=== PATIENT | male | born 1980 | race Caucasian/White ===

== ENCOUNTER 2021-03-03 09:48 | Outpatient (CLI) | payer BC, SELFPAY | END 2021-03-03 09:49 | disposition home or self-care (01) | PROVIDERS: PCP Family Medicine; Visit Provider Surgery | DX: Z01.818 Encounter for other preprocedural examination (principal); Z98.890 Other specified postprocedural states | CPT/HCPCS: 36415; 86850; 86900; 86901 ==

== ENCOUNTER 2021-03-08 00:45 | Day surgery (SDC) | payer BC, SELFPAY ==
[2021-03-02 17:34] VITALS: BMI 27.1
[2021-03-08] VITALS (9 sets, daily range): BP systolic 107–147; BP diastolic 58–79; PULSE 48–82; RESP 12–16; TEMP 36.4; O2SAT 99–100; BMI 27.3
--- NOTE | 2021-03-08 10:41 | WPDANESEPPF ---
Anes - Initial Pre Proc Eval Procedure: Operation Date: 03/08/21 12:00 Proposed Procedures p Robotic Assisted Laparoscopic Right Inguinal Hernia with Mesh - Hanna Anne MD Date/Time: 03/08/21 10:41 Surgeon: Hanna Anne MD Pre Op Diagnosis: right ing hernia Patient Data Age: 40 Gender: M Height: 1.83 m Weight: 90.72 kg Allergies Allergy/AdvReac Type Severity Reaction Status Date / Time No Known Allergies Allergy Verified 03/02/21 17:33 Home Medications Medication Instructions Recorded Confirmed Type No Home Medications 03/02/21 03/02/21 History Patient hx anesthesia problems: none Family hx anesthesia problems: none PMFSH Past Medical History Medical History (Updated 02/05/21 @ 14:40 by France Regan) Folliculitis Intermittent low back pain Surgical History Surgical History (Updated 02/05/21 @ 14:31 by Micheline Tay) History of repair of anterior cruciate ligament of left knee 1992 Family History Family History (Updated 02/05/21 @ 14:31 by Micheline Tay) Father Hypertension Other Lung cancer Pancreatic cancer Social History Social History (Updated 02/05/21 @ 14:32 by Micheline Tay) Smoking packs per day: 0.5 Smoking cigarettes per day: 10.0 Years smoked: 10 Smoking pack-years: 5.00 Smoking status: Former smoker Tobacco type: cigarettes Second hand tobacco smoke exposure: No Smoking end date: 08/18/04 Additional smoking assessment comments: vaping for 8 years Alcohol intake: current Alcohol use details: rarely Substance use: never Substance use type: does not use Living arrangements: with family 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 identity (if verbalized by the patient): Male Spiritual care concerns: No Anes - Eval Final PreProcedure Day of Procedure 03/08/21 10:41 Patient weight: overweight Heart: regular rate and rhythm Lungs: clear to auscultation and normal air movement Airway: Mallampati scale class II Neurological: alert and oriented Last oral intake: >/= 8 hours ASA classification: II Emergent: no Anesthetic plan: proceed Anesthesia type and monitoring: general ETT and standard monitoring Informed Consent: The patient's anesthetic plan and its attendant risks and benefits were discussed with the patient/family/POA. Questions were solicited and answers provided to the satisfaction of the patient/family/POA.
[2021-03-08] MEDS: LACTATED RINGERS 1,000 ML 30 ML IV CONT ×2 (11:37→13:43)
[2021-03-08] MEDS: ACETAMINOPHEN 500 MG TABLET 1000 MG PO (11:37)
[2021-03-08] MEDS: KETOROLAC 15 MG/ML VIAL (*BKC) IV PUSH (11:37)
--- NOTE | 2021-03-08 11:54 | WPDHPUPDATE1 ---
History and Physical Update Update Date/Time: 03/08/21 11:54 History and Physical has been reviewed, including an updated exam of the patient. There are NO changes in the patient's condition. Risks, benefits, and alternatives have been discussed and questions answered. Patient agrees to proceed with procedure.
--- NOTE | 2021-03-08 11:54 | PM.IMHP ---
H&P: HPI History of Present Illness Date/Time: 03/08/21 11:54 40 y/o male presents to office for evaluation right inguinal hernia. He has noticed a bulge in the right groin associated with discomfort in area. He notices pressure to the area, sneezing, or coughing causes him discomfort.He initially noticed the bulge approximately 6 mos ago. It hasn't changed in size. He is having normal BM's. He is able to reduce the bulge when laying down. He has no previous hernia repair. He is now seen in consultation at the request of Dr. Raya. Chief Complaint: right inguinal hernia Review of Systems Review of Systems: All systems reviewed & are unremarkable except as noted in HPI and below PMFSH Past Medical History Medical History Folliculitis Intermittent low back pain Surgical History Surgical History History of repair of anterior cruciate ligament of left knee 1992 Family History Family History Father Hypertension Other Lung cancer Pancreatic cancer Social History Social History Smoking packs per day: 0.5 Smoking cigarettes per day: 10.0 Years smoked: 10 Smoking pack-years: 5.00 Smoking status: Former smoker Tobacco type: cigarettes Second hand tobacco smoke exposure: No Smoking end date: 08/18/04 Additional smoking assessment comments: vaping for 8 years Alcohol intake: current Alcohol use details: rarely Substance use: never Substance use type: does not use Living arrangements: with family 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 identity (if verbalized by the patient): Male Spiritual care concerns: No Meds Home Medications and Allergies Home Medications Medication Instructions Recorded Confirmed Type No Home Medications 03/02/21 03/08/21 History Allergies Allergy/AdvReac Type Severity Reaction Status Date / Time No Known Allergies Allergy Verified 03/08/21 11:15 Vital Signs Vital Signs - 24 hr 03/08/21 11:51 Temperature 36.4 C Pulse Rate 76 Respiratory Rate 16 Blood Pressure 122/69 Pulse Oximetry 100 Exam Const: General: cooperative, healthy appearing, comfortable, no acute distress and well developed Nutritional Appearance: average body habitus Orientation/consciousness: patient oriented x3 Limitations: no limitations Resp: Effort & Inspection: normal respiratory effort Auscultation: clear to auscultation bilaterally Cardio: Rate: regular rate Rhythm: regular rhythm GI: Inspection: normal to inspection and non-distended GI Palp: Yes Soft to palpation and No Tenderness to palpation present (GI) Other: reducible RIH Assessment and Plan Assessment and plan (1) Right inguinal hernia: Code(s): K40.90 - Unilateral inguinal hernia, without obstruction or gangrene, not specified as recurrent Status: Acute Assessment and Plan: will setup for robotic assisted repair c mesh
[2021-03-08] MEDS: ceFAZolin 2 GM/D5W 50 ML 2 GM/50 ML BAG IVPB (12:13)
[2021-03-08] MEDS: BUPIVACAINE/EPINEPHRINE 0.5% 10 ML VIAL 30 ML INFILTRATE (12:38)
--- NOTE | 2021-03-08 13:46 | P.OP_ITS ---
Procedure Note - Detailed Date of Procedure 03/08/21 Pre-op Diagnosis right inguinal hernia Post-op Diagnosis same Procedure Performed Robotic assisted repair direct right inguinal hernia with mesh Surgeon Hanna Anne MD Anesthesia general Indications 40-year-old male with right inguinal hernia Findings direct right inguinal hernia c lipoma of cord Description of Procedure Patient was brought into the operating room and placed in the supine position. After adequate induction of general anesthesia, the patient was prepped and draped in normal sterile fashion. A time-out was then done to verify the pa tient's identity, as well as the procedure being performed. Began by making a 8 mm incision in the supraumbilical region, a Veress needle was then placed into the peritoneal cavity. CO2 gas was then insufflated and after adequate pneumoperitoneum was achieved, the Veress needle was removed. I then placed an 8 mm trocar through this incision. I then placed the endoscope through this trocar site and under direct visualization placed 2 further 8 mm ports in the right and left mid abdomen. The [employer] robot was then docked to the 3 trocar sites. I then scrubbed out and went to the robotic console. Upon examining the pelvis, it was noted that the patient had a right inguinal defect. The left side was examined and no hernia defect was noted. I began by making a preperitoneal flap approximately 6 cm superior to the defect. This flap was carried medially past the umbilical ligaments in laterally to the transversalis. It then began dissection of my medial compartment taking this down to the pubic tubercle. A direct hernia was noted and reduced. I then began the lateral dissection taking this down to the transversalis fascia. Once these compartments were achieved, I began dissection around the cord structures. Using careful dissection, I was able to reduce a lipoma of the cord off the cord structures. Of note, no indirect hernia was noted. Once this was adequately done, I went ahead and placed a 15 x 10 piece of [employer] mesh into the abdominal cavity. The mesh was carefully positioned, centering the center of the mesh over the direct defect. Once this was done, was very satisfied with our repair. I then closed the peritoneal flap with a running 2.0 V Lock suture. The abdomen was then desufflated, and all ports were removed. All incisions were then closed with the 4.0 monocryl suture. Dermabond was placed on each wound. The patient tolerated the procedure well, was extubated in the operating room postoperatively, and will now be transferred to the recovery room in stable condition. Implants 15 x 10 [employer] mesh Estimated Blood Loss 5 Drains No Packing No Pathology none sent Complications No immediate complications Condition stable Disposition PACU
[2021-03-08] MEDS: oxyCODONE HCL (*CRX) 5 MG TAB IR PO (15:43)
--- NOTE | 2021-03-08 15:57 | SUR.PHASEII ---
PT URINATED AT 1520 WITHOUT ISSUE.
== END 2021-03-08 15:40 | disposition home or self-care (01) ==
PROVIDERS: PCP Family Medicine; Visit Provider Surgery
PROC: 8E0Y4CZ Robotic Assisted Procedure of Lower Extremity, Percutaneous Endoscopic Approach (ICD-10-PCS; CPT 49650; principal; 2021-03-08 12:00)
DX: K40.90 Unilateral inguinal hernia, without obstruction or gangrene, not specified as recurrent (principal); Z87.891 Personal history of nicotine dependence
CPT/HCPCS: 49650; S2900; A9270; C1781; J0690; J1100; J1170; J1885; J2250; J2405; J2704; J2710; J3010; J7030; J7120

== ENCOUNTER → 2022-02-16 09:07 | Outpatient (CLI) | payer BC, SELFPAY ==
--- NOTE | ~2022-02-16 | MR_ITS ---
EXAMINATION: MR knee RT wo con DATE: 02/16/2022 09:45 INDICATION: Generalized right knee pain limited range of motion. Hyperextension and twisting injury 2 -3 months ago. TECHNIQUE: Magnetic resonance imaging (MRI) of the right knee was performed without intravenous contr ast. Sequences included axial PD-weighted FS FSE, coronal PD-weighted FSE and PD-weighted FS FSE, sag ittal PD-weighted FSE, and sagittal T2-weighted FS FSE. COMPARISON: None. FINDINGS: Medial compartment: Oblique undersurface tear at the junction of the posterior horn and body of the medial meniscus. Cart ilage intact. Minimal osteophytosis. Lateral compartment: Meniscus and cartilage intact. Mild osteophytosis. Patellofemoral compartment: Cartilage intact. Retinacula are intact. Minimal osteophytosis. Ligaments and tendons: Abnormal signal deep to the ACL fibers at their insertion. The remainder of the ligament appears inta ct. The PCL, MCL, and LCL are intact. Flexor and extensor tendons are intact. Fluid: Small volume joint fluid. Focal fluid collection at the origin of the medial head of the gastrocnemiu s muscle. Small fluid collection deep to the insertion of the patellar tendon. Osseous/other: Bone marrow signal is unremarkable. IMPRESSION: 1. Oblique undersurface tear at the junction of the posterior horn and body of the medial meniscus. 2. Mild partial tear of the ACL at its origin. 3. Partial tear at the origin of the medial head of gastrocnemius muscle. 4. Minimal deep infrapatell ar bursitis. Reviewed, dictated and finalized at location K. IMPRESSION: 1. Oblique undersurface tear at the junction of the posterior horn and body of the medial meniscus. 2. Mild partial tear of the ACL at its origin. 3. Partial tear at the origin of the medial head of gastrocnemius muscle. 4. Mi nimal deep infrapatellar bursitis.
== END ==
PROVIDERS: PCP Family Medicine; Visit Provider Family Medicine
DX: S83.241A Other tear of medial meniscus, current injury, right knee, initial encounter (principal); X58.XXXA Exposure to other specified factors, initial encounter
CPT/HCPCS: 73721

== ENCOUNTER → 2022-09-19 12:42 | Outpatient (CLI) | payer BC, SELFPAY ==
--- NOTE | ~2022-09-19 | MR_ITS ---
MRI of the lumbar spine Clinical History: Back pain Technique: Axial T2-weighted images, and sagittal T1-weighted, T2-weighted, and and T2 fat-sat images were acquired. Findings: There is no fracture or subluxation of the lumbar spine. Vertebral bodies maintain normal h eight and alignment. No suspicious bone marrow signal reality seen. At L1-L2, there is no disc bulge or herniation. There is no spinal canal stenosis or neural foraminal narrowing. L2-L3, there is no disc bulge or herniation. No spinal canal stenosis or neural foraminal narrowing. At L3-L4, there is diffuse disc bulge with mild effacement of the ventral thecal sac. No re spinal canal stenosis. There is mild right neural foraminal narrowing. At L4-L5, there is minimal disc bulge. No spinal canal stenosis. There is moderate left neural forami nal narrowing and mild right neural foraminal narrowing. At L5-S1, there is probable right foraminal disc osteophyte complex. There is moderate right neural f oraminal narrowing and mild left neural foraminal narrowing. No spinal canal stenosis. Paravertebral soft tissues are unremarkable. Impression: Mild degenerative spondylosis, as detailed above. Reviewed, dictated and finalized at location . [facility] Impression: Mild degenerative spondylosis, as detailed above.
== END ==
PROVIDERS: PCP Family Medicine; Visit Provider Nurse Practitioner
DX: M47.896 Other spondylosis, lumbar region (principal)
CPT/HCPCS: 72148

== ENCOUNTER 2022-10-11 10:00 | Outpatient (RCR) | payer BC, SELFPAY ==
--- NOTE | 2022-09-20 16:32 | PTOPEVAL1 ---
Assessment and note entered by Marleny Martinez, PT, DPT Evaluation Information Assessment Status Evaluation Diagnosis low back pain Onset 6 weeks Subjective Information Pt states about 6 weeks ago he was exercising and initial hurt his back. He states 3 weeks ago he was sitting down and felt a pop. Since then he has numbness down the side of his calf and pettit and on the dorsum of his pain. He reports pain the front of his thigh and into his L buttock. He stands during his evaluation d/t not being able to sit. He states he had a steroid injection and that really helped his pain. He states he enjoys exercising and performing a lift and that is what started all of this. Reported Pain Level Pain Score 5: Self Report Assessment PT Clinical Summary Juarez presents to therapy today for his initial evaluation with a diagnosis of low back pain. Today he demonstrates decreased LE strength and functional mobility that is limited by pain. He reports pain in his low back, hip, and buttock with altered sensation down his lateral lower leg and on the dorsum of his foot. He has visible increased tissue density as well as palpable muscle spasms in his L piriformis, L quadratus lumborum, and L lumbar paraspinals. He demonstrates an extension bias with repeated motions. Skilled physical therapy services are indicated to improve pain; which shoulder improve ROM and strength, to decreased muscle spasms, to increase sitting tolerance, to education on proper lifting mechanics, to limit impairments, and to return to baseline mobility. Plan of Care Interventions Electrical Stimulation,Gait Training,Hot Pack/Cold Pack,Manual Therapy,Mechanical Traction,Neuro Re- education,Patient/Caregiver Educati,Therapeutic Activities,Therapeutic Exercise PT Services Indicated Yes Treatment Frequency and 2x/wk for 4 wks Duration These treatments will address the objective and functional deficits as defined above. The patient will be advanced safely and appropriately in order for the patient to progress towards his/her prior level of function. Additional exercises will be introduced and as well as a comprehensive home exercise program upon discharge, if needed, ?to ensure carryover of functional gains achieved in the clinic. This treatment plan has been reviewed and agreement upon by the patient.
--- NOTE | 2022-10-11 10:51 | PTOPDC ---
Assessment and note entered by Marleny Martinez, PT, DPT Evaluation Information Assessment Status Discharge Diagnosis low back pain Onset 6 weeks Subjective Information Pt states he is doing much better overall. he states he still wakes up 1-2 times a night d/t pain but it is very mild compared to where he started. He declines any shooting pain down the leg but still has some numbness in the front of his pettit. Pt reports 75-80% improvement in overall symptoms. Reported Pain Level Pain Score 2: Self Report Assessment PT Clinical Summary Juarez presents to therapy today for his progress report following 6 visits of skilled therapy to treat his lumbar radiculopathy. Today he demonstrates excellent strength and mobility that is no longer limited by pain. He has met or progressed well towards all of his therapy goals and no longer requires skilled therapy services. Pt wishes to be discharged at this time. Plan of Care PT Services Indicated No Treatment Frequency and to be discharged Duration
== END 2022-10-11 12:53 | disposition home or self-care (01) ==
LOC: ANHGOSHPT 10:00
PROVIDERS: PCP Family Medicine; Visit Provider Nurse Practitioner
DX: M54.50 Low back pain, unspecified (principal)
CPT/HCPCS: 97012; 97014; 97110; 97112; 97140; 97162; 97530; G0283

== ENCOUNTER → 2023-04-04 12:18 | Outpatient (CLI) | payer BC, SELFPAY ==
--- NOTE | ~2023-04-04 | XR_ITS ---
EXAM: XR foot LT min 3V DATE: 04/04/2023 12:35 HISTORY: injury playing pickleball medial and lateral pain . COMPARISON: None available. FINDINGS: Normal mineralization. No fracture or dislocation. No lytic or blastic lesion. Joint space s are mild degenerative change at the first MTP joint. Minimal plantar enthesopathy. No erosion or pe riosteal change. Soft tissues within normal limits. IMPRESSION: No acute osseous finding in the left foot. Reviewed, dictated and finalized at location K.
== END ==
PROVIDERS: PCP Family Medicine; Visit Provider Nurse Practitioner Family
DX: S99.922A Unspecified injury of left foot, initial encounter (principal); X58.XXXA Exposure to other specified factors, initial encounter
CPT/HCPCS: 73630

== ENCOUNTER 2023-06-19 07:57 | Outpatient (RCR) | payer BC, SELFPAY ==
--- NOTE | 2023-06-19 08:59 | PTOPEVDC ---
Assessment and note entered by Marleny Martinez, PT, DPT Thank you for referring Juarez López III to [facility].? An evaluation has been completed. No further treatment is needed. Evaluation Information Assessment Status Evaluation Diagnosis back pain Onset 2 weeks Subjective Information Pt states he is doing a lot better now than when he scheduled his appointments. He states he has still been staying up with stretching and mobility since getting discharged from therapy in October. He states about 2 weeks ago he was playing pickelball and swung too hard and felt a pop in his back. Since then he was been really complaint with exercises and stretching since then. He has been doing yoga daily for the last couple of months. He reportes intermittent thumb tingling/ burning sensation. Reported Pain Level Pain Score 0: Self Report Assessment PT Clinical Summary Juarez presents to therapy today for his initial evaluation with a diagnosis of back pain. Today he demonstrates good lumbar ROM and LE strength without pain. He reports feeling tight and slightly compressed with prolonged standing, pt states traction helped with this feeling last time . Answered all pt's questions about exercise, stretching, and recovery. He is currently doing well and does not require skilled therapy services at this time. Plan of Care Interventions Mechanical Traction,Patient/Caregiver Educati, Therapeutic Activities,Therapeutic Exercise PT Services Indicated No Treatment Frequency and evaluate and discharge Duration
== END 2023-06-19 09:46 | disposition home or self-care (01) ==
LOC: ANHGOSHPT 07:57
PROVIDERS: PCP Family Medicine; Visit Provider Nurse Practitioner Family
DX: M54.40 Lumbago with sciatica, unspecified side (principal); M51.26 Other intervertebral disc displacement, lumbar region
CPT/HCPCS: 97012; 97110; 97161

== ENCOUNTER 2024-06-24 00:25 | Day surgery (SDC) | payer BC, SELFPAY ==
[2024-06-11 14:33] VITALS: BMI 27.8
[2024-06-24 06:34] VITALS: BP 126/76; PULSE 61; RESP 18; TEMP 36.2; O2SAT 97
[2024-06-24] MEDS: LACTATED RINGERS 1,000 ML 150 ML IV CONT (06:49)
--- NOTE | 2024-06-24 07:35 | PM.IMHP ---
H&P: HPI History of Present Illness Date/Time: 06/24/24 07:35 Chief Complaint: Screening for colorectal cancer Narrative: 43 yo man presents for first colonoscopy. Has occasional rectal bleeding. Denies fam hx colon cancer. Review of Systems Review of Systems: All systems reviewed & are unremarkable except as noted in HPI and below Constitutional: Constitutional: Denies chills, Denies fever(s), Denies headache(s) and Denies weight loss Eyes: Eyes: Denies change in vision ENT: Denies dizziness, Denies headache(s), Denies neck mass and Denies throat swelling Cardiovascular: Cardiovascular: Denies chest pain, Denies lightheadedness and Denies dyspnea Respiratory: Respiratory: Denies cough, Denies dyspnea and Denies wheezing Gastrointestinal: Gastrointestinal: Denies abdominal pain, Denies change in bowel habits, Denies nausea and Denies vomiting Genitourinary: Genitourinary: Denies hematuria and Denies dysuria Musculoskeletal: Musculoskeletal: Reports as per HPI Integumentary/Breasts: Skin/Breast: Reports as per HPI Neurologic: Denies dizziness and Denies headache(s) Allergic/Immunologic: Allergic/Immunologic: Denies throat swelling and Denies wheezing PMFSH Past Medical History Medical History Dyslipidemia Injury of meniscus of right knee Intermittent low back pain Muscle spasm Surgical History Surgical History History of repair of anterior cruciate ligament of left knee (~1992) 1992 Hx of right inguinal hernia repair Robotic assist repair direct right inguinal hernia with mesh on 03/08/21 Family History Family History Father Hypertension Other Lung cancer Pancreatic cancer Social History Social History Smoking packs per day: 0.5 Smoking cigarettes per day: 10.0 Years smoked: 10 Smoking pack-years: 5.00 Smoking status: Current every day smoker Tobacco type: cigarettes Second hand tobacco smoke exposure: No Smoking end date: 08/18/13 Additional smoking assessment comments: vaping for 8 years Alcohol intake: current Alcohol use details: Once a month Substance use: current Substance use type: marijuana Other substance usage details: daily Lack of Transportation: No Lack of Food: Never True Current Housing: I Have Housing Concerned About Future Housing: No Difficulty Paying Gas/Electric Bills: No Difficulty Paying for Meds: No Currently Unemployed: No Education: Master's Degree or Higher Difficulty w/ Childcare or Family Care: No Living arrangements: with family Occupation/Education: occupation 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 identity (if verbalized by the patient): Male Spiritual care concerns: No Meds Home Medications and Allergies Home Medications Medication Instructions Recorded Confirmed Type ibuprofen 800 mg tablet 800 mg PO Q12H #30 tabs 06/09/23 06/24/24 Rx cyclobenzaprine 10 mg tablet 10 mg PO Q8H PRN muscle spasm #30 04/05/24 06/24/24 Rx tabs Allergies Allergy/AdvReac Type Severity Reaction Status Date / Time No Known Allergies Allergy Verified 06/24/24 06:33 Vital Signs Vital Signs - 24 hr 06/24/24 06:34 Temperature 97.1 F L Pulse Rate 61 Respiratory Rate 18 Blood Pressure 126/76 Pulse Oximetry 97 Oxygen Delivery Room Air Exam Const: General: no acute distress and alert Orientation/consciousness: patient oriented x3 HENMT: Head: normocephalic and atraumatic Ears: hearing grossly normal bilaterally Face/Nose/Sinus: Normal nares present Mouth: Yes Normal oral and palatal mucosa present Eyes: Periorbital: periorbital findings normal Sclera: sclerae normal EOM: EOMs intact bilaterally Neck: Neck: normal visual inspection, no lymphadenopathy and trachea midline Chest: Chest palpation & inspection: normal inspection of the chest Resp: Effort & Inspection: normal respiratory effort Auscultation: clear to auscultation bilaterally Cardio: Jugular venous distension: no JVD Rate: regular rate Rhythm: regular rhythm Heart sounds: S1 normal heart sound present and S2 normal heart sound present Peripheral pulses: Peripheral pulses 2+ throughout GI: Inspection: normal to inspection GI Palp: Yes Soft to palpation, No Tenderness to palpation present (GI), No Guarding due to palpation present (GI) and No Rebound tenderness present Percussion: Yes normal to percussion Auscultation: normal bowel sounds : General: Yes no CVA tenderness Back/Spine/Pelvis: Back: no CVA tenderness Neuro: General: patient oriented x3, no focal motor deficits and CN's II-XI intact bilaterally Cognition (Neuro): normal cognition Speech: normal speech Motor exam (neuro): 5/5 motor strength present throughout Extrem: General: capillary refill normal and no clubbing, cyanosis or edema Assessment and Plan Assessment and plan (1) Screening for colorectal cancer: Code(s): Z12.11 - Encounter for screening for malignant neoplasm of colon; Z12.12 - Encounter for screening for malignant neoplasm of rectum Status: Acute Assessment and Plan: I have recommended colonoscopy. I have discussed the procedure, risks, benefits, and alternatives. Questions were answered. Patient is agreeable to proceed.
[2024-06-24 07:54] VITALS: BP 118/74; PULSE 78; RESP 15; O2SAT 94
[2024-06-24 08:14] VITALS: BP 109/71; PULSE 60; RESP 19; O2SAT 96
[2024-06-24 08:24] VITALS: BP 126/76; PULSE 61; RESP 18; O2SAT 97
== END 2024-06-24 08:29 | disposition home or self-care (01) ==
PROVIDERS: PCP Family Medicine; Visit Provider Surgery
PROC: 0DJD8ZZ Inspection of Lower Intestinal Tract, Via Natural or Artificial Opening Endoscopic (ICD-10-PCS; CPT 45378; principal; 2024-06-24 08:00)
DX: Z12.11 Encounter for screening for malignant neoplasm of colon (principal); K62.1 Rectal polyp; K64.8 Other hemorrhoids; E78.5 Hyperlipidemia, unspecified; M62.838 Other muscle spasm; F17.210 Nicotine dependence, cigarettes, uncomplicated; F12.90 Cannabis use, unspecified, uncomplicated; Z98.890 Other specified postprocedural states; Z80.1 Family history of malignant neoplasm of trachea, bronchus and lung; Z80.0 Family history of malignant neoplasm of digestive organs
CPT/HCPCS: 45380; 88305; J7120